=== PATIENT | female | born 1995 | race Caucasian/White ===

== ENCOUNTER → 2021-10-29 | Outpatient (CLI) | payer MEDICAID ==
--- NOTE | 2021-10-29 12:35 | REP ---
INDICATION: F/U ANATOMY COMPARISON: None. TECHNIQUE: Transabdominal obstetrical ultrasound with color Doppler evaluation. FINDINGS: Examination demonstrates a single live intrauterine in cephalic presentation. motion is identified by technologist. Placenta is noted anterior and grade 1 without evidence for placenta previa or abruption. Amniotic fluid volume is normal. Cervix measures 3.8 cm in length and appears closed.. Selected gestational age: 25 weeks 0 days with ANAI 02/11/2022. Gestational age by current measurements 25 weeks 1 day with ANAI 02/10/2022. FHR equals 138 beats per minute. BPD: 6.2 cm; 25 weeks 0 days; 50% HC: 23.9 cm; 26 weeks 0 days; 70% AC: 20.5 cm; 25 weeks 0 days; 51% FL: 4.7 cm; 25 weeks 4 days; 61% HL: 4.2 cm; 25 weeks 3 days; 57% HC/AC: 1.17 Estimated weight 794 grams (54thpercentile). Anatomical assessment demonstrates normal structures including cranium, choroid plexus, cavum, cerebellum/posterior fossa, facial features, lungs, four-chamber heart/ventricular outflow tracts, diaphragm, stomach, cord insertion/three-vessel cord, kidneys/bladder, spine, and extremities. Limited evaluation of the facial profile due to positioning. Cisterna magna measures upper limits of normal at 9.2 mm. IMPRESSION: Single live intrauterine in cephalic presentation demonstrating appropriate interval growth. Anatomical assessment as above is relatively normal. <Electronically signed by Kyle Carrillo > 10/29/21 [id number]
== END ==
LOC: M WHC 08:15
PROVIDERS: ATTEND Obstetrics & Gynecology
DX: Z34.92 Encounter for supervision of normal pregnancy, unspecified, second trimester (principal)

== ENCOUNTER → 2021-11-11 | Outpatient (CLI) | payer MEDICAID, OTHER ==
[2021-11-11 13:31] LABS: HEMATOCRIT 34.1 % (36.0-47.0); HEMOGLOBIN 11.6 g/dl (12.0-15.5); MEAN CORPUSCULAR HEMOGLOBIN 32.1 pg (27.0-33.0); MEAN CORPUSCULAR VOLUME 94.5 fl (80.0-96.0); PLATELET COUNT, AUTOMATED 262 10^3/uL (150-450); RED BLOOD COUNT 3.61 10^6/uL (4.00-5.40); WHITE BLOOD COUNT 9.1 10^3/uL (4.0-10.0)
== END ==
LOC: M PLALAB 08:33
PROVIDERS: ATTEND Obstetrics & Gynecology
DX: Z34.92 Encounter for supervision of normal pregnancy, unspecified, second trimester (principal)

== ENCOUNTER → 2022-01-05 | Outpatient (CLI) | payer OTHER | LOC: M WHC 08:13 | PROVIDERS: ATTEND Advanced Practice Midwife | DX: Z34.93 Encounter for supervision of normal pregnancy, unspecified, third trimester (principal) ==

== ENCOUNTER → 2022-04-14 | Outpatient (REF) | payer OTHER ==
[2022-04-14 18:44] LABS: GC DNA AMPLIFICATION NEGATIVE (NEGATIVE)
== END ==
LOC: M SFHCWAGY 16:44
PROVIDERS: ATTEND Obstetrics & Gynecology
DX: Z11.3 Encounter for screening for infections with a predominantly sexual mode of transmission (principal)

== ENCOUNTER → 2022-05-11 | Outpatient (REF) | payer OTHER ==
[2022-05-11 19:01] LABS: GC DNA AMPLIFICATION NEGATIVE (NEGATIVE)
== END ==
LOC: M SFHCWAGY 17:03
PROVIDERS: ATTEND Obstetrics & Gynecology
DX: Z12.4 Encounter for screening for malignant neoplasm of cervix (principal); Z01.419 Encounter for gynecological examination (general) (routine) without abnormal findings; Z77.9 Other contact with and (suspected) exposures hazardous to health; Z11.3 Encounter for screening for infections with a predominantly sexual mode of transmission

== ENCOUNTER → 2022-10-19 | Outpatient (CLI) | payer OTHER | LOC: M WHC 10:33 | PROVIDERS: ATTEND Obstetrics & Gynecology | DX: R10.2 Pelvic and perineal pain (principal) ==

== ENCOUNTER → 2022-11-18 | Outpatient (CLI) | payer OTHER | LOC: M RAD 13:42 | PROVIDERS: ATTEND Advanced Practice Midwife | DX: Z34.81 Encounter for supervision of other normal pregnancy, first trimester (principal) ==

== ENCOUNTER → 2022-11-26 | Outpatient (CLI) | payer OTHER ==
[2022-11-26 14:58] LABS: HEMATOCRIT 40.6 % (36.0-47.0); HEMOGLOBIN 14.4 g/dl (12.0-15.5); MEAN CORPUSCULAR HEMOGLOBIN 31.2 pg (27.0-33.0); MEAN CORPUSCULAR HGB CONC 35.5 g/dl (32.0-36.5); MEAN CORPUSCULAR VOLUME 87.9 fl (80.0-96.0); PLATELET COUNT, AUTOMATED 284 10^3/uL (150-450); RED BLOOD COUNT 4.62 10^6/uL (4.00-5.40)
[2022-11-26 15:51] LABS: HIV 1&2 SCREEN CENTAUR NEGATIVE (NEGATIVE)
[2022-11-26 15:59] LABS: HEPATITIS C VIRUS ABY INDEX 0.1 INDEX (<0.8)
[2022-11-26 16:39] LABS: GC DNA AMPLIFICATION NEGATIVE (NEGATIVE)
== END ==
LOC: M LAB 14:15
PROVIDERS: ATTEND Advanced Practice Midwife
DX: Z34.81 Encounter for supervision of other normal pregnancy, first trimester (principal)

== ENCOUNTER → 2023-01-25 | Outpatient (CLI) | payer OTHER | LOC: M WHC 08:10 | PROVIDERS: ATTEND Advanced Practice Midwife | DX: Z34.92 Encounter for supervision of normal pregnancy, unspecified, second trimester (principal) ==

== ENCOUNTER → 2023-02-25 | Outpatient (CLI) | payer OTHER | LOC: M RAD 09:57 | PROVIDERS: ATTEND Obstetrics & Gynecology | DX: Z36.2 Encounter for other antenatal screening follow-up (principal) ==

== ENCOUNTER → 2023-03-16 | Outpatient (CLI) | payer OTHER ==
[2023-03-16 14:06] LABS: HEMATOCRIT 33.4 % (36.0-47.0); HEMOGLOBIN 11.3 g/dl (12.0-15.5); MEAN CORPUSCULAR HEMOGLOBIN 31.7 pg (27.0-33.0); MEAN CORPUSCULAR HGB CONC 33.8 g/dl (32.0-36.5); MEAN CORPUSCULAR VOLUME 93.6 fl (80.0-96.0); PLATELET COUNT, AUTOMATED 234 10^3/uL (150-450); RED BLOOD COUNT 3.57 10^6/uL (4.00-5.40); WHITE BLOOD COUNT 8.6 10^3/uL (4.0-10.0)
== END ==
LOC: M PLALAB 09:07
PROVIDERS: ATTEND Obstetrics & Gynecology
DX: Z34.82 Encounter for supervision of other normal pregnancy, second trimester (principal)

== ENCOUNTER → 2023-04-20 | Outpatient (CLI) | payer OTHER | LOC: M PLALAB 12:17 | PROVIDERS: ATTEND Advanced Practice Midwife | DX: Z36.9 Encounter for antenatal screening, unspecified (principal) ==

== ENCOUNTER → 2023-05-19 | Outpatient (REF) | payer OTHER | LOC: M PLALAB 08:20 | PROVIDERS: ATTEND Advanced Practice Midwife | DX: Z36.85 Encounter for antenatal screening for Streptococcus B (principal) ==

== ENCOUNTER 2023-05-27 20:22 | Outpatient (CLI) | payer OTHER ==
[~2023-05-27] VITALS: Ht 162.6 cm; Wt 62.0 kg
[2023-05-27] MEDS ORDERED: ZOLO25TA PO (20:35)
[2023-05-27] MEDS ORDERED: HOME MED LIST COMPLETE! XX SCH (20:35)
[2023-05-27] MEDS ORDERED: PRENTAB9 PO (20:35)
[2023-05-27 20:44] VITALS: BP 134/68
[2023-05-27 21:09] LABS: APPEARANCE, URINE CLEAR (CLEAR); BACTERIA, URINE AUTO NEGATIVE (NEGATIVE); BILIRUBIN, URINE AUTO NEGATIVE (NEGATIVE); BLOOD, URINE BLOOD NEGATIVE (NEGATIVE); COLOR, URINE STRAW (YELLOW); GLUCOSE, URINE (UA) AUTO NEGATIVE (NEGATIVE); KETONE, URINE AUTO NEGATIVE (NEGATIVE); LEUKOCYTE ESTERASE, URINE AUTO 1+ (NEGATIVE); NITRITE, URINE AUTO NEGATIVE (NEGATIVE); PROTEIN, URINE AUTO NEGATIVE (NEGATIVE); RBC, URINE AUTO 1 /HPF (0-3); SPECIFIC GRAVITY URINE AUTO 1.004 (1.002-1.035); SQUAMOUS EPITHELIAL CELL UR AU 1 /HPF (0-6); UROBILINOGEN, URINE AUTO 0.2 mg/dL (0.0-2.0); WBC, URINE AUTO 3 /HPF (0-3)
[2023-05-27 21:15] VITALS: BP 125/76
== END 2023-05-27 22:54 | disposition home or self-care (01) ==
LOC: M LDO 20:22
PROVIDERS: ATTEND Obstetrics & Gynecology
DX: O26.893 Other specified pregnancy related conditions, third trimester (principal); R25.2 Cramp and spasm; Z3A.36 36 weeks gestation of pregnancy
CPT/HCPCS: 59025; 81001; G0463

== ENCOUNTER 2023-06-11 18:01 | Outpatient (CLI) | payer OTHER ==
[~2023-06-11] VITALS: Ht 162.6 cm; Wt 61.6 kg
[~2023-06-11 18:01] MED LIST: PRENTAB9 PO; ZOLO25TA PO
[2023-06-11] MEDS ORDERED: MORPHINE 10 MG/ML 1ML VIAL IM ONE (21:15)
[2023-06-11] MEDS ORDERED: LR 1,000 ML IV ONE (21:15)
[2023-06-11] MEDS ORDERED: PROMETHAZINE 25MG/ML 1ML VIAL IV ONE (21:15)
[2023-06-11] MEDS ORDERED: MORPHINE 10 MG/ML 1ML VIAL IV ONE (21:15)
[2023-06-11] MEDS ORDERED: LR 1,000 ML IV SCH (21:15)
[2023-06-11] MEDS ORDERED: diphenhydrAMINE 50MG/ML VIAL IV ONE (23:10)
[2023-06-11 23:19] VITALS: BP 137/77
[2023-06-12 02:01] VITALS: BP 132/81
[2023-06-13] MEDS ORDERED: TUMS500C PO (13:54)
[2023-06-13] MEDS ORDERED: ACET-897 PO (13:54)
== END 2023-06-12 02:09 | disposition home or self-care (01) ==
LOC: M LDO 18:01
PROVIDERS: ATTEND Advanced Practice Midwife
DX: O47.1 False labor at or after 37 completed weeks of gestation (principal); Z3A.38 38 weeks gestation of pregnancy
CPT/HCPCS: 59025; 96372; 96374; 96375; 96376; G0463; J1200; J2550

== ENCOUNTER 2023-06-13 13:24 | Inpatient (IN) | payer OTHER ==
[~2023-06-13] VITALS: Ht 162.6 cm; Wt 62.5 kg
[2023-06-13] VITALS (18 sets, daily range): BP systolic 116–158; BP diastolic 67–102; O2SAT 96–98
[2023-06-13] MEDS ORDERED: TUMS500C PO (13:54)
[2023-06-13] MEDS ORDERED: ACET-897 PO (13:54)
[2023-06-13] MEDS ORDERED: HOME MED LIST COMPLETE! XX SCH (14:00)
[2023-06-13 14:33] LABS: HEMATOCRIT 33.6 % (36.0-47.0); HEMOGLOBIN 11.2 g/dl (12.0-15.5); MEAN CORPUSCULAR HEMOGLOBIN 28.6 pg (27.0-33.0); MEAN CORPUSCULAR HGB CONC 33.3 g/dl (32.0-36.5); MEAN CORPUSCULAR VOLUME 85.7 fl (80.0-96.0); PLATELET COUNT, AUTOMATED 273 10^3/uL (150-450); RED BLOOD COUNT 3.92 10^6/uL (4.00-5.40); WHITE BLOOD COUNT 10.5 10^3/uL (4.0-10.0)
[2023-06-13] MEDS ORDERED: LACTATED RINGER'S 1000 ML IV STA (15:28)
[2023-06-13] MEDS ORDERED: TRANEXAMIC ACID INJection 1,000 MG in NS 100 ML IV PRN (15:30)
[2023-06-13] MEDS ORDERED: CARBOPROST TROMETHAMINE 250 MCG/ML AMP IM PRN (15:30)
[2023-06-13] MEDS ORDERED: METHYLERGONOVINE MALEATE 0.2MG/ML 1ML VIAL IM PRN (15:30)
[2023-06-13] MEDS ORDERED: OXYTOCIN DRIP 30 UNITS in IV 1 EA IV PRN (15:30)
[2023-06-13] MEDS ORDERED: LIDOCAINE 1% MDV 20ML VIAL INFIL PRN (15:30)
[2023-06-13] MEDS ORDERED: OXYTOCIN DRIP 30 UNITS in IV 1 EA IV SCH ×2 (15:30→22:40)
[2023-06-13] MEDS: LR 1,000 ML IV SCH ×2 (15:40→17:16)
[2023-06-13] MEDS: CALCIUM CARBONATE 500 MG CHEW U/D PO PRN ×2 (16:56→21:30)
[2023-06-13] MEDS ORDERED: FENTANYL 2MCG/ML ROPIVACAINE 0.2% IN 0.9% NACL 100ML IVBAG As Ordered ONE (17:21)
[2023-06-13] MEDS ORDERED: EPIDURAL/PCA KEYS XX PRN (17:30)
[2023-06-13] MEDS ORDERED: ePHEDrine SULFATE 25 MG/5 ML(5MG/ML) SYRINGE IVP PRN (17:30)
[2023-06-13] MEDS ORDERED: diphenhydrAMINE 50MG/ML VIAL IV PRN (17:30)
[2023-06-13] MEDS ORDERED: NALOXONE INJ 0.4MG/1ML VIAL IV PRN (17:30)
[2023-06-13] MEDS ORDERED: LR 500 ML IV PRN (17:30)
[2023-06-13] MEDS ORDERED: FENTANYL/ROPIVACAINE/NACL BAG 100 ML EPIDURAL SCH (17:30)
[2023-06-13] MEDS ORDERED: ONDANSETRON 4MG 2ML VIAL IV PRN (17:30)
[2023-06-13] MEDS ORDERED: LR 1,000 ML IV SCH (22:40)
[2023-06-13] MEDS ORDERED: RHOGAM 300MCG (1500IU) INJ IM SCH (22:40)
[2023-06-13] MEDS ORDERED: ACETAMINOPHEN TAB 650MG DOSE (2X325MG) PO PRN (22:40)
[2023-06-13] MEDS ORDERED: DIBUCAINE 1% OINTMENT 30GM TOP PRN (22:40)
[2023-06-13] MEDS ORDERED: IBUPROFEN 600MG TAB PO PRN (22:40)
[2023-06-13] MEDS ORDERED: ANUSOL HC CREAM 30GM TOP PRN (22:40)
[2023-06-13] MEDS: IBUPROFEN 800 MG TAB PO PRN (23:37)
[2023-06-14 00:50] VITALS: BP 123/66; O2SAT 97
[2023-06-14] MEDS: ACETAMINOPHEN 500 MG TAB PO PRN ×2 (04:21→20:26)
[2023-06-14 06:00] VITALS: BP 116/74; O2SAT 99
[2023-06-14] MEDS: SERTRALINE HCL 25 MG TABLET PO SCH (08:28)
[2023-06-14] MEDS: PRENATAL VITAMINS CHEWABLE TABLET PO SCH (08:28)
[2023-06-14] MEDS: DOCUSATE SODIUM 100MG CAPSULE PO PRN (08:28)
[2023-06-14] MEDS: IBUPROFEN 800 MG TAB PO PRN (14:46)
[2023-06-14 17:15] VITALS: BP 143/63; O2SAT 98
[2023-06-15 06:00] VITALS: BP 142/80; O2SAT 98
[2023-06-15] MEDS: ACETAMINOPHEN 500 MG TAB PO PRN ×2 (06:00→13:37)
[2023-06-15] MEDS: PRENATAL VITAMINS CHEWABLE TABLET PO SCH (08:55)
[2023-06-15] MEDS: SERTRALINE HCL 25 MG TABLET PO SCH (08:56)
[2023-06-15] MEDS: DOCUSATE SODIUM 100MG CAPSULE PO PRN (08:56)
[2023-06-15] MEDS ORDERED: MEASLES,MUMPS,RUBELLA VACCINE INJ (MMR-II) SC.IMMUN ONE (09:00)
[2023-06-15] MEDS ORDERED: BOOSTRIX VACCINE (TETANUS/DIPHTH/ACEL. PERTUSSIS) 0.5ML SYR IM.IMMUN ONE (09:00)
[2023-06-15] MEDS: IBUPROFEN 800 MG TAB PO PRN (09:27)
== END 2023-06-15 16:30 | disposition home or self-care (01) | DRG 560 ==
LOC: M LDI 13:24 → M OBS 06-14 00:42
PROVIDERS: ADMIT Obstetrics & Gynecology; ATTEND Obstetrics & Gynecology
PROC: 10E0XZZ Delivery of Products of Conception, External Approach (ICD-10-PCS; principal; 2023-06-13)
PROC: 3E033VJ Introduction of Other Hormone into Peripheral Vein, Percutaneous Approach (ICD-10-PCS; 2023-06-13)
DX: O99.344 Other mental disorders complicating childbirth (principal); F32.A Depression, unspecified; F41.9 Anxiety disorder, unspecified; Z3A.39 39 weeks gestation of pregnancy; Z79.899 Other long term (current) drug therapy; Z88.5 Allergy status to narcotic agent; Z88.8 Allergy status to other drugs, medicaments and biological substances; Z37.0 Single live birth

== ENCOUNTER → 2024-01-11 | Outpatient (REF) | payer OTHER ==
[~2024-01-11] MED LIST changes: +ACET-897 PO; +TUMS500C PO
== END ==
LOC: M SFHCWAGY 17:59
PROVIDERS: ATTEND Obstetrics & Gynecology
DX: Z12.4 Encounter for screening for malignant neoplasm of cervix (principal)

== ENCOUNTER → 2024-01-28 | Outpatient (CLI) | payer OTHER | LOC: M WHC 12:56 | PROVIDERS: ATTEND Obstetrics & Gynecology | DX: N83.202 Unspecified ovarian cyst, left side (principal) ==

== ENCOUNTER → 2024-05-16 | Outpatient (REF) | payer OTHER | LOC: M SFHCWAGY 16:50 | PROVIDERS: ATTEND Nurse Practitioner Family | DX: R35.0 Frequency of micturition (principal) ==

== ENCOUNTER → 2024-05-23 | Outpatient (REF) | payer OTHER ==
[2024-05-23 12:00] LABS: Trichomonas vaginalis (AMP) NOT DETECTED (NEGATIVE)
[2024-05-23 12:24] LABS: GC DNA AMPLIFICATION NEGATIVE (NEGATIVE)
== END ==
LOC: M SFHCWAGY 09:52
PROVIDERS: ATTEND Nurse Practitioner Family
DX: Z11.3 Encounter for screening for infections with a predominantly sexual mode of transmission (principal); R30.0 Dysuria

== ENCOUNTER → 2024-06-29 | Outpatient (REF) | payer OTHER | LOC: M SFHCWAGY 14:41 | PROVIDERS: ATTEND Nurse Practitioner Family | DX: N73.9 Female pelvic inflammatory disease, unspecified (principal) ==

== ENCOUNTER → 2024-07-04 | Outpatient (CLI) | payer OTHER | LOC: M LABDRWAD 13:21 | PROVIDERS: ATTEND Nurse Practitioner Family | DX: Z13.79 Encounter for other screening for genetic and chromosomal anomalies (principal); Z84.81 Family history of carrier of genetic disease ==

== ENCOUNTER → 2024-09-13 | Outpatient (CLI) | payer OTHER ==
[2024-09-13 14:06] LABS: HCG, SERUM QUALITATIVE NEGATIVE (NEGATIVE)
[2024-09-13 14:10] LABS: FREE T4 1.17 NG/DL (0.89-1.76); THYROID STIMULATING HORMONE 1.443 uIU/ML (0.55-4.78)
[2024-09-13 14:11] LABS: THYROID PEROXIDASE ANTIBODY 41 U/ML (<60.0)
[2024-09-13 14:41] LABS: Trichomonas vaginalis (AMP) NOT DETECTED (NEGATIVE)
[2024-09-13 15:05] LABS: GC DNA AMPLIFICATION NEGATIVE (NEGATIVE)
== END ==
LOC: M PLALAB 09:04
PROVIDERS: ATTEND Nurse Practitioner Family
DX: Z30.42 Encounter for surveillance of injectable contraceptive (principal); E04.1 Nontoxic single thyroid nodule